=== PATIENT | female | born 1990 | race Caucasian/White ===

== ENCOUNTER 2020-03-07 19:56 | Emergency (ER) | payer OTHER ==
[~2020-03-07] VITALS: Ht 157.5 cm; Wt 81.7 kg
[2020-03-07 20:54] LABS: ABSOLUTE BASOPHILS 0.1 thou/uL (0.0-0.2); ABSOLUTE EOSINOPHILS 0.4 thou/uL (0.0-0.7); ABSOLUTE LYMPHOCYTES 2.4 thou/uL (0.8-5.3); ABSOLUTE MONOCYTES 0.7 thou/uL (0.0-1.2); ABSOLUTE NEUTROPHILS 9.9 thou/uL (1.6-8.1); BASOPHILS 0.9 %; EOSINOPHILS 2.7 %; HEMATOCRIT 41.7 % (37.0-47.0); HEMOGLOBIN 13.9 gm/dL (12.0-15.0); LYMPHOCYTES 17.9 %; MCH 27.8 pg (26.0-34.0); MCHC 33.2 g/dL (28.0-37.0); MCV 83.6 fL (80.0-100.0); MONOCYTES 4.9 %; MPV 7.9 fl. (7.2-11.1); NUCLEATED RBCS 0 /100WBC; PLATELET COUNT* 277 thou/uL (150-400); POLYS 73.6 %; RBC 4.99 mil/uL (4.20-5.00); RDW-CV 13.4 % (10.5-14.5); WBC 13.4 thou/uL (4.0-11.0)
[2020-03-07 21:03] LABS: CALCIUM 8.8 mg/dL (8.5-10.1); POTASSIUM 3.8 mmol/L (3.5-5.1)
[2020-03-07 21:04] LABS: PROTIME 10.7 Seconds (9.20-11.50)
[2020-03-07 21:07] LABS: ALBUMIN 3.6 g/dL (3.4-5.0); TOTAL BILIRUBIN 0.4 mg/dL (<0.1-1.0); TOTAL PROTEIN 7.2 g/dL (6.4-8.2)
[2020-03-07 22:34] LABS: URINE BILIRUBIN NEGATIVE (Negative); URINE BLOOD NEGATIVE (Negative); URINE CLARITY CLEAR; URINE COLOR YELLOW; URINE GLUCOSE-RANDOM NEGATIVE (Negative); URINE KETONES NEGATIVE (Negative); URINE LEUKOCYTES-REFLEX NEGATIVE (Negative); URINE NITRITE-REFLEX NEGATIVE (Negative); URINE PROTEIN NEGATIVE (Negative); URINE SPECIFIC GRAVITY 1.025 (1.005-1.030)
[2020-03-08 00:29] VITALS: BP 127/81
--- NOTE | 2020-03-08 12:48 | EKG ---
[place] [address] ELECTROCARDIOGRAM REPORT Name: DEVIKA RAMOS Room: [facility]#: [id number] Admission: 03/07/20 Attend Phys: Discharge: 03/08/20 Date of : 88 Date of Service: 03/07/20 [facility] Report #: [id number] THIS REPORT FOR: //name// [facility] ED Test Date: 2020-03-07 Test Time: 20:02:22 Pat Name: DEVIKA RAMOS Department: Room: Gender: F [employer] Instructor: : 1990 Requested By: Olivia Swenson Order Number: [id number] MD: Nabor Garland Measurements Intervals [place] Rate: 99 P: 50 TX: 127 QRS: -1 QRSD: 101 T: 16 QT: 343 QTc: 441 Interpretive Statements Sinus rhythm Low voltage, precordial leads No previous ECG available for comparison Electronically Signed On 03-08-2020 12:48:37 [employer] by Nabor Garland [email or web address] <ELECTRONICALLY SIGNED> By: Nabor Garland MD, [facility] 03/08/20 1248 01 01 Nabor Garland MD, FACC /EPI
== END 2020-03-08 00:30 | disposition home or self-care (01) ==
LOC: M.ERS 19:56
PROVIDERS: Personal Emergency Response Attendant
DX: K80.20 Calculus of gallbladder without cholecystitis without obstruction (principal)